=== PATIENT | female | born 1980 | race Caucasian/White ===

== ENCOUNTER 2018-04-02 05:49 | Emergency (ER) | payer MEDICAID, MEDICARE ==
[~2018-04-02] VITALS: Ht 175.3 cm; Wt 80.0 kg
[2018-04-02 05:58] VITALS: BP 123/83
[2018-04-02] MEDS ORDERED: ONDANSETRON ODT 4 MG ONE (06:30)
[2018-04-02] MEDS ORDERED: ONDANSETRON ODT 4 MG PO ONE (06:30)
[2018-04-02] MEDS ORDERED: ALBUTEROL SULFATE 2.5 MG/3 ML ONE (06:44)
== END 2018-04-02 09:25 | disposition home or self-care (01) ==
LOC: ED 07:21
DX: J20.8 Acute bronchitis due to other specified organisms (principal)
CPT/HCPCS: 71046; 94640; 99284; Q0162

== ENCOUNTER 2019-02-04 01:46 | Inpatient (IN) | payer MEDICARE, MEDICAID ==
[~2019-02-04] VITALS: Ht 175.3 cm; Wt 87.1 kg
--- NOTE | 2019-02-04 01:58 | NUR ---
PT. C/O "BAD RASH" TO VAGINAL AREA. AND ABCESS TO LEFT ARM. PT. SHOUTING DURING TRIAGE "IT FUCKING HURTS OK!, EVERY ONE OF YOU HAS FUCKED ME OVER".
[2019-02-04] MEDS ORDERED: AMPICILLIN/SULBACTAM 3 GM in SODIUM CHLORIDE 0.9% 100 ML IV ONE (02:30)
[2019-02-04] MEDS ORDERED: AZITHROMYCIN 250 MG TABLET PO ONE (02:30)
[2019-02-04] MEDS ORDERED: ONDANSETRON 2MG/ML, 2ML IVPush ONE ×2 (02:30→04:00)
[2019-02-04] MEDS ORDERED: OXYcodone/APAP 5/325MG TABLET PO ONE (02:30)
[2019-02-04] MEDS ORDERED: VANCOMYCIN 1,600 MG in SODIUM CHLORIDE 0.9% 250 ML IV ONE (02:30)
[2019-02-04] MEDS ORDERED: VANCOMYCIN PER PHARMACY MC PRN ×2 (02:30→05:30)
[2019-02-04] MEDS ORDERED: CEFTRIAXONE 250 MG IM ONE (02:30)
[2019-02-04] MEDS ORDERED: KETOROLAC 30 MG/1 ML IVPush ONE (02:30)
[2019-02-04] MEDS ORDERED: ONDANSETRON 2MG/ML, 2ML ONE ×2 (02:41→03:51)
[2019-02-04] MEDS ORDERED: OXYcodone/APAP 5/325MG TABLET ONE (02:42)
[2019-02-04] MEDS ORDERED: AZITHROMYCIN 250 MG TABLET ONE (02:42)
[2019-02-04] MEDS ORDERED: CEFTRIAXONE 250 MG ONE (02:42)
[2019-02-04] MEDS ORDERED: KETOROLAC 30 MG/1 ML ONE (02:42)
[2019-02-04] MEDS ORDERED: LIDOCAINE-MPF 1%, 5ML ONE ×2 (02:42→03:51)
[2019-02-04 02:47] LABS: BASOPHILS # (AUTO) 0.07 x10^3/uL (0-0.1); BASOPHILS % (AUTO) 1 % (0-1); EOSINOPHILS # (AUTO) 0.28 x10^3/uL (0-0.4); EOSINOPHILS % (AUTO) 3 % (1-7); LYMPHOCYTES # (AUTO) 1.74 x10^3/uL (1-3.4); LYMPHOCYTES % (AUTO) 16 % (22-44); MD NO; MEAN CORPUSCULAR HEMOGLOBIN 28.8 pg (27.0-34.8); MEAN CORPUSCULAR HGB CONC 34.4 g/dL (32.4-35.8); MEAN CORPUSCULAR VOLUME 83.7 fL (80-100); MEAN PLATELET VOLUME 9.3 fL (7.4-10.4); MONOCYTES # (AUTO) 0.79 x10^3/uL (0.2-0.8); MONOCYTES % (AUTO) 7 % (2-9); NEUTROPHILS % (AUTO) 73 % (42-75); PLATELET COUNT 277 x10^3/uL (130-400); RED BLOOD COUNT 4.55 x10^6/uL (3.82-5.3)
[2019-02-04 02:55] LABS: ALANINE AMINOTRANSFERASE 16 U/L (12-78); ALBUMIN 3.5 g/dL (3.4-5.0); ANION GAP 7 mmol/L (5-15); CALCIUM 8.4 mg/dL (8.5-10.1); CHLORIDE 106 mmol/L (98-107); CREATININE 0.68 mg/dL (0.55-1.02)
[2019-02-04 02:59] LABS: CLUE CELLS NONE SEEN (NONE SEEN); WET PREP WBCS MODERATE (FEW)
[2019-02-04 03:00] LABS: ALKALINE PHOSPHATASE 55 U/L (45-117); BILIRUBIN,TOTAL 1.6 mg/dL (0.2-1.0); TOTAL PROTEIN 6.8 g/dL (6.4-8.2)
--- NOTE | 2019-02-04 03:08 | NUR ---
ct pending lab/creatine/beta
--- NOTE | 2019-02-04 03:16 | NUR ---
blood cultures were drawn iv abx and po im abx were given per md order pt is in ct now
[2019-02-04] MEDS ORDERED: POTASSIUM CHLORIDE 20 MEQ TAB.ER.PRT PO ONE ×2 (03:30→12:30)
[2019-02-04] MEDS ORDERED: POTASSIUM CHLORIDE 40 MEQ in SODIUM CHLORIDE 0.9% 500 ML IV ONE (03:30)
[2019-02-04] MEDS ORDERED: OMNIPAQUE 350 MG/ML, 100ML BOTTLE ONE (03:32)
[2019-02-04] MEDS ORDERED: POTASSIUM CHLORIDE 20 MEQ TAB.ER.PRT ONE (03:57)
[2019-02-04] MEDS ORDERED: LIDOCAINE-MPF 1%, 5ML INFIL ONE (04:00)
--- NOTE | 2019-02-04 04:24 | NUR ---
incision was made after given lido sq by dr rodriguez . pus was well drained and cleaned up by ns liter bag and packed by dr rodriguez and dressing was covered. pt tolerated well during the procedures given crackers with juice per pt's request . vss stable unr at bed side for admit order
[2019-02-04] MEDS ORDERED: metroNIDAZOLE 500 MG TABLET PO ONE (04:30)
[2019-02-04] MEDS ORDERED: metroNIDAZOLE 500 MG TABLET ONE (04:33)
--- NOTE | 2019-02-04 04:38 | NUR ---
report given to lupe del toro pt will be transferred
[2019-02-04] MEDS: ENOXAPARIN 40 MG/0.4 ML SQ SCH (05:28)
[2019-02-04] MEDS: NICOTINE 7 MG/24 HR PATCH.TD24 TD SCH (05:28)
[2019-02-04] MEDS ORDERED: ENALAPRILAT 1.25 MG/ML, 2ML IVPush PRN (05:30)
[2019-02-04] MEDS ORDERED: PHARMACOKINETIC CONSULTATION MC ONE (05:30)
[2019-02-04] MEDS ORDERED: PHARMACOKINETIC MONITORING MC PRN (05:30)
[2019-02-04] MEDS ORDERED: ONDANSETRON 2MG/ML, 2ML IVPush PRN (05:30)
[2019-02-04] MEDS ORDERED: ACETAMINOPHEN 325 MG TABLET PO PRN (05:30)
[2019-02-04] MEDS ORDERED: POLYETHYLENE GLYCOL 17 GM PACKET PO PRN (05:30)
[2019-02-04] MEDS ORDERED: AMPICILLIN/SULBACTAM 3 GM in SODIUM CHLORIDE 0.9% 100 ML IV SCH (05:30)
[2019-02-04] MEDS: SENNA/DOCUSATE TABLET PO SCH (08:51)
[2019-02-04] MEDS ORDERED: AMPICILLIN/SULBACTAM 3 GM in SODIUM CHLORIDE 0.9% 50 ML IV SCH (09:00)
[2019-02-04] MEDS: VANCOMYCIN 1,500 MG in SODIUM CHLORIDE 0.9% 250 ML IV SCH (14:15)
[2019-02-04 17:45] VITALS: BP 108/68
[2019-02-04] MEDS: AMPICILLIN/SULBACTAM 3 GM in SODIUM CHLORIDE 0.9% 50 ML IV SCH (19:39)
[2019-02-04 19:45] VITALS: BP 96/67
[2019-02-05] MEDS: AMPICILLIN/SULBACTAM 3 GM in SODIUM CHLORIDE 0.9% 50 ML IV SCH ×4 (01:03→18:32)
[2019-02-05] MEDS: VANCOMYCIN 1,500 MG in SODIUM CHLORIDE 0.9% 250 ML IV SCH ×2 (01:55→14:28)
[2019-02-05 02:04] VITALS: BP 105/67
[2019-02-05] MEDS: ENOXAPARIN 40 MG/0.4 ML SQ SCH (04:51)
[2019-02-05] MEDS: NICOTINE 7 MG/24 HR PATCH.TD24 TD SCH (04:52)
[2019-02-05] MEDS: OXYcodone/APAP 5/325MG TABLET PO PRN ×2 (05:01→10:05)
[2019-02-05 05:19] LABS: ANION GAP 5 mmol/L (5-15); BASOPHILS # (AUTO) 0.03 x10^3/uL (0-0.1); BASOPHILS % (AUTO) 1 % (0-1); CALCIUM 7.7 mg/dL (8.5-10.1); CHLORIDE 116 mmol/L (98-107); CREATININE 0.61 mg/dL (0.55-1.02); EOSINOPHILS # (AUTO) 0.36 x10^3/uL (0-0.4); EOSINOPHILS % (AUTO) 8 % (1-7); LYMPHOCYTES # (AUTO) 1.87 x10^3/uL (1-3.4); LYMPHOCYTES % (AUTO) 41 % (22-44); MD NO; MEAN CORPUSCULAR HEMOGLOBIN 28.9 pg (27.0-34.8); MEAN CORPUSCULAR HGB CONC 33.9 g/dL (32.4-35.8); MEAN CORPUSCULAR VOLUME 85.2 fL (80-100); MEAN PLATELET VOLUME 9.4 fL (7.4-10.4); MONOCYTES # (AUTO) 0.43 x10^3/uL (0.2-0.8); MONOCYTES % (AUTO) 9 % (2-9); NEUTROPHILS # (AUTO) 1.89 x10^3/uL (1.8-6.8); NEUTROPHILS % (AUTO) 41 % (42-75); PLATELET COUNT 239 x10^3/uL (130-400); RED BLOOD COUNT 3.99 x10^6/uL (3.82-5.3); RED CELL DISTRIBUTION WIDTH 14.4 % (9.6-15.2)
[2019-02-05 09:15] VITALS: BP 125/87
[2019-02-05] MEDS: SENNA/DOCUSATE TABLET PO SCH (10:04)
[2019-02-05] MEDS: KETOROLAC 30 MG/1 ML IV PRN ×2 (10:05→17:50)
[2019-02-05 15:36] VITALS: BP 95/62
[2019-02-05 19:01] VITALS: BP 99/54
[2019-02-05] MEDS: VANCOMYCIN 1,800 MG in SODIUM CHLORIDE 0.9% 250 ML IV SCH (23:43)
[2019-02-06] MEDS: AMPICILLIN/SULBACTAM 3 GM in SODIUM CHLORIDE 0.9% 50 ML IV SCH ×4 (01:31→19:42)
[2019-02-06 03:39] VITALS: BP 108/75
[2019-02-06] MEDS: OXYcodone/APAP 5/325MG TABLET PO PRN ×5 (04:07→20:08)
[2019-02-06] MEDS: NICOTINE 7 MG/24 HR PATCH.TD24 TD SCH (05:40)
[2019-02-06] MEDS: ENOXAPARIN 40 MG/0.4 ML SQ SCH (05:40)
[2019-02-06 07:56] VITALS: BP 138/96
[2019-02-06] MEDS: SENNA/DOCUSATE TABLET PO SCH (09:00)
[2019-02-06 12:28] VITALS: BP 140/84
[2019-02-06] MEDS: VANCOMYCIN 1,800 MG in SODIUM CHLORIDE 0.9% 250 ML IV SCH (12:31)
[2019-02-06 18:48] VITALS: BP 131/76
[2019-02-07] MEDS: VANCOMYCIN 1,800 MG in SODIUM CHLORIDE 0.9% 250 ML IV SCH ×3 (00:01→23:32)
[2019-02-07 00:26] VITALS: BP 117/66
[2019-02-07] MEDS: AMPICILLIN/SULBACTAM 3 GM in SODIUM CHLORIDE 0.9% 50 ML IV SCH ×4 (02:15→19:38)
[2019-02-07] MEDS: OXYcodone/APAP 5/325MG TABLET PO PRN ×4 (02:29→18:43)
[2019-02-07] MEDS: ENOXAPARIN 40 MG/0.4 ML SQ SCH (05:20)
[2019-02-07] MEDS: NICOTINE 7 MG/24 HR PATCH.TD24 TD SCH (05:20)
[2019-02-07 05:30] LABS: BASOPHILS # (AUTO) 0.02 x10^3/uL (0-0.1); BASOPHILS % (AUTO) 1 % (0-1); EOSINOPHILS # (AUTO) 0.37 x10^3/uL (0-0.4); EOSINOPHILS % (AUTO) 8 % (1-7); LYMPHOCYTES # (AUTO) 1.99 x10^3/uL (1-3.4); LYMPHOCYTES % (AUTO) 45 % (22-44); MD NO; MEAN CORPUSCULAR HGB CONC 33.7 g/dL (32.4-35.8); MEAN CORPUSCULAR VOLUME 85.9 fL (80-100); MEAN PLATELET VOLUME 9.1 fL (7.4-10.4); MONOCYTES # (AUTO) 0.34 x10^3/uL (0.2-0.8); MONOCYTES % (AUTO) 8 % (2-9); NEUTROPHILS # (AUTO) 1.69 x10^3/uL (1.8-6.8); NEUTROPHILS % (AUTO) 38 % (42-75); PLATELET COUNT 268 x10^3/uL (130-400); RED BLOOD COUNT 3.86 x10^6/uL (3.82-5.3); RED CELL DISTRIBUTION WIDTH 14.3 % (9.6-15.2)
[2019-02-07 05:32] LABS: CHLORIDE 111 mmol/L (98-107)
[2019-02-07 05:37] LABS: ANION GAP 6 mmol/L (5-15); CALCIUM 7.5 mg/dL (8.5-10.1); CREATININE 0.68 mg/dL (0.55-1.02)
[2019-02-07 06:40] VITALS: BP 128/86
[2019-02-07] MEDS: SENNA/DOCUSATE TABLET PO SCH (07:53)
[2019-02-07 13:45] VITALS: BP 102/63
[2019-02-07 18:31] VITALS: BP 122/78
[2019-02-08] MEDS: OXYcodone/APAP 5/325MG TABLET PO PRN ×3 (00:27→12:05)
[2019-02-08 00:34] VITALS: BP 115/62
[2019-02-08] MEDS: AMPICILLIN/SULBACTAM 3 GM in SODIUM CHLORIDE 0.9% 50 ML IV SCH ×2 (02:02→07:17)
[2019-02-08] MEDS: NICOTINE 7 MG/24 HR PATCH.TD24 TD SCH (05:28)
[2019-02-08] MEDS: ENOXAPARIN 40 MG/0.4 ML SQ SCH (05:28)
[2019-02-08 06:34] VITALS: BP 107/76
[2019-02-08] MEDS: SENNA/DOCUSATE TABLET PO SCH (07:17)
[2019-02-08] MEDS ORDERED: SULF1TAB23 PO (11:40)
[2019-02-08] MEDS ORDERED: AMOX1TAB64 PO (11:40)
[2019-02-08] MEDS ORDERED: ACET325T14 PO (11:40)
[2019-02-08] MEDS: VANCOMYCIN 1,800 MG in SODIUM CHLORIDE 0.9% 250 ML IV SCH (12:05)
[2019-02-08 13:41] VITALS: BP 134/82
== END 2019-02-08 14:00 | disposition home or self-care (01) | DRG 580 ==
LOC: ED 02:05 → EDIP 03:48 → 4NOR 05:01
PROVIDERS: ADMIT Family Medicine; ATTEND Family Medicine
PROC: 0J9H0ZZ Drainage of Left Lower Arm Subcutaneous Tissue and Fascia, Open Approach (ICD-10-PCS; principal; 2019-02-04)
DX: L02.414 Cutaneous abscess of left upper limb (principal); R71.0 Precipitous drop in hematocrit; L03.114 Cellulitis of left upper limb; A59.01 Trichomonal vulvovaginitis; F11.90 Opioid use, unspecified, uncomplicated; E87.6 Hypokalemia; F15.10 Other stimulant abuse, uncomplicated; F31.9 Bipolar disorder, unspecified; I07.1 Rheumatic tricuspid insufficiency
CPT/HCPCS: 36415; 80048; 80053; 80202; 83605; 83735; 84145; 84703; 85025; 87040; 87210; 87491; 87591; 87808; 93306; 96365; 96372; 96375; 99285; G0378; J0295; J0696; J1650; J1885; J2405; J3370; J3480; Q9967; J7040; J7050

== ENCOUNTER 2019-04-21 18:29 | Emergency (ER) | payer MEDICAID, MEDICARE ==
[~2019-04-21] VITALS: Ht 175.3 cm; Wt 81.1 kg
[~2019-04-21 18:29] MED LIST: ACET325T14 PO; AMOX1TAB64 PO; SULF1TAB23 PO
--- NOTE | 2019-04-21 18:38 | NUR ---
pt to room from lobby, changed into gown, responds approp to staff, NAD, comfort measures provided, call light within reach.
[2019-04-21 18:50] LABS: BASOPHILS # (AUTO) 0.02 x10^3/uL (0-0.1); BASOPHILS % (AUTO) 0 % (0-1); EOSINOPHILS # (AUTO) 0.23 x10^3/uL (0-0.4); EOSINOPHILS % (AUTO) 4 % (1-7); LYMPHOCYTES % (AUTO) 36 % (22-44); MD NO; MEAN CORPUSCULAR HGB CONC 33.2 g/dL (32.4-35.8); MEAN CORPUSCULAR VOLUME 87.3 fL (80-100); MEAN PLATELET VOLUME 9.1 fL (7.4-10.4); MONOCYTES % (AUTO) 11 % (2-9); NEUTROPHILS # (AUTO) 3.07 x10^3/uL (1.8-6.8); NEUTROPHILS % (AUTO) 49 % (42-75); PLATELET COUNT 272 x10^3/uL (130-400); RED BLOOD COUNT 4.84 x10^6/uL (3.82-5.3); RED CELL DISTRIBUTION WIDTH 13.3 % (9.6-15.2)
--- NOTE | 2019-04-21 18:50 | NUR ---
ASSUMED CARE OF PATIENT. BEDIDE REPORT GIVEN FROM KIMBERLEY LENZ. NO ACUTE DISTRESS NOTED. CALL LIGHT IN PLACE. WILL CONTINUE TO MONITOR.
[2019-04-21 19:01] VITALS: BP 104/58
[2019-04-21 19:02] LABS: ALANINE AMINOTRANSFERASE 17 U/L (12-78); ALBUMIN 3.7 g/dL (3.4-5.0); ANION GAP 9 mmol/L (5-15); CALCIUM 8.7 mg/dL (8.5-10.1); CHLORIDE 111 mmol/L (98-107)
[2019-04-21 19:05] LABS: ALKALINE PHOSPHATASE 45 U/L (45-117); CREATININE 0.76 mg/dL (0.55-1.02); TOTAL PROTEIN 6.8 g/dL (6.4-8.2)
--- NOTE | 2019-04-21 19:43 | NUR ---
PT REPORTS SHE BELIEVES THAT SHE HAS HIV AND WE ARE ALL LIARS AND "HAVE A FAT MOUTH." PT DISCHARGED. Addendum: 04/21/19 at 1947 by SULE[place] PROVIDER WENT OVER LABS WITH PATIENT AND DISCHARGE INSTRUCTIONS. VERBAL AND WRITTEN DISCHARGE INTRUCTIONS GIVEN.
== END 2019-04-21 19:49 | disposition home or self-care (01) ==
LOC: ED 19:07
DX: B00.1 Herpesviral vesicular dermatitis (principal); Z90.49 Acquired absence of other specified parts of digestive tract; F31.9 Bipolar disorder, unspecified; Z86.19 Personal history of other infectious and parasitic diseases; F43.10 Post-traumatic stress disorder, unspecified; F25.9 Schizoaffective disorder, unspecified; F17.200 Nicotine dependence, unspecified, uncomplicated
CPT/HCPCS: 36415; 80053; 84703; 85025; 87806; 99283; G0475